=== PATIENT | female | born 1995 | race Caucasian/White ===

== ENCOUNTER 2018-10-05 18:27 | Emergency (ER) | payer OTHER ==
[2018-10-05 18:33] VITALS: BP 118/79
--- NOTE | 2018-10-05 18:41 | ED Physician Documentation ---
PD HPI HEENT - Stated complaint Stated Complaint: SORE THROAT - Chief complaint Chief Complaint: Heent - History obtained from History obtained from: Patient - History of Present Illness Timing - onset: Today (Sore throat today with tonsillar exudates. No fever, runny nose or cough.) Review of Systems Constitutional: denies: Fever, Chills Eyes: denies: Loss of vision, Decreased vision Ears: denies: Loss of hearing, Ear pain Nose: denies: Rhinorrhea / runny nose, Congestion Throat: reports: Sore throat. denies: Dental pain / toothache, Oral lesions / sores Cardiac: denies: Chest pain / pressure, Palpitations PD PAST MEDICAL HISTORY - Present Medications Home Medications: Ambulatory Orders Medication Instructions Recorded Confirmed Fluticasone [Flonase] 1 sprays RAQUEL DAILY 10/05/18 10/05/18 Ibuprofen [Motrin] 800 mg PO Q8H PRN #30 tablet 10/05/18 Loratadine [Claritin] 10 mg PO DAILY 10/05/18 10/05/18 - Allergies Allergies/Adverse Reactions: Allergies Allergy/AdvReac Type Severity Reaction Status Date / Time No Known Drug Allergies Allergy Verified 10/05/18 18:33 PD ED PE NORMAL - Vitals Vital signs reviewed: Yes - General General: Alert and oriented X 3, No acute distress - HEENT HEENT: Other (Mild exudative tonsillitis without cervical adenopathy) - Neck Neck: Supple, no meningeal sign, No bony TTP - Derm Derm: No rash - Neuro Neuro: Alert and oriented X 3, Normal speech - Psych Psych: Normal mood, Normal affect Results - Vitals Vitals: Vital Signs - 24 hr 10/05/18 18:32 Temperature 36.6 C Heart Rate 51 L Respiratory 18 Rate Blood Pressure 118/79 O2 Saturation 100 - Labs Labs: Laboratory Tests 10/05/18 18:40 Group A Strep Rapid Negative Departure - Departure Disposition: 01 Home, Self Care Clinical Impression: Acute viral pharyngitis Condition: Good Record reviewed to determine appropriate education?: Yes Instructions: ED Pharyngitis Viral Report Pending Prescriptions: Ibuprofen [Motrin] 800 mg PO Q8H PRN #30 tablet PRN Reason: PAIN &/OR FEVER Comments: Your initial strep test is negative. We will still culture your throat and if another bacterial pathogen is isolated we will call you in approximately 2 days time to call in antibiotics at that time. Based on the information we have at this juncture though, it seems unlikely will need antibiotics. Take ibuprofen as needed for pain. Return for new or worsening symptoms or if not better in a week.
== END 2018-10-05 18:59 | disposition home or self-care (01) ==
LOC: ED 18:27
DX: J02.8 Acute pharyngitis due to other specified organisms (principal); B97.89 Other viral agents as the cause of diseases classified elsewhere
CPT/HCPCS: 87070; 87430; 99283

== ENCOUNTER 2019-01-28 12:06 | Outpatient (CLI) | payer OTHER ==
--- NOTE | 2019-01-29 14:43 | MRI Report ---
Reason: PAIN IN LEFT WRIST Procedure Date: 01/28/2019 Accession Number: [id number] / [id number] Procedure: MRI - Wrist LT W/O CPT Code: FULL RESULT: EXAM: LEFT WRIST MRI WITHOUT CONTRAST EXAM DATE: 01/28/2019 12:45 PM. CLINICAL HISTORY: PAIN IN LEFT WRIST. COMPARISON: None. TECHNIQUE: Sequences acquired include diagnostic quality coronal and axial T1. Nondiagnostic coronal and sagittal T2 fat-sat, coronal and sagittal gradient. Technical issues with the scanner. Patient is to be rescheduled for repeat exam. No charge exam. FINDINGS: Limited non-contrast wrist MRI. No obvious acute fracture or malalignment demonstrated. Visualized musculotendinous structures grossly intact. IMPRESSION: 1. Limited noncontrast wrist MRI demonstrates no fracture or malalignment. Patient is to be scheduled for repeat examination. RAD[facility]
== END 2019-01-28 12:07 | disposition home or self-care (01) ==
LOC: DI 12:06
PROVIDERS: ATTEND Orthopaedic Surgery
DX: M25.532 Pain in left wrist (principal)

== ENCOUNTER 2019-02-05 15:53 | Outpatient (CLI) | payer OTHER ==
[2019-02-05] MEDS ORDERED: GADOBUTROL 7.5 MMOL/7.5 ML VIAL IVP ONE (16:43)
[2019-02-05] MEDS ORDERED: GADOBUTROL 7.5 MMOL/7.5 ML VIAL ONE (16:51)
--- NOTE | 2019-02-06 10:38 | MRI Report ---
Reason: PAIN IN LEFT WRIST Procedure Date: 02/05/2019 Accession Number: [id number] / [id number] Procedure: MRI - Wrist LT W/WO CPT Code: FULL RESULT: EXAM: LEFT WRIST MRI WITHOUT AND WITH CONTRAST EXAM DATE: 02/05/2019 05:05 PM. CLINICAL HISTORY: Pain in left wrist. COMPARISON: WRIST LT W/WO 01/28/2019 12:45 PM. TECHNIQUE: Multiplanar, multisequence T1-weighted and fluid-sensitive sequences of the wrist before and after administration of intravenous contrast. IV contrast: . Other: None. FINDINGS: Bones: No fractures or subluxations. No marrow edema or abnormal enhancement. No bone lesions. Cartilage: The articular cartilage is unremarkable. The triangular fibrocartilage complex is unremarkable. Negative ulnar variance. Ligaments: The scapholunate and lunotriquetral ligaments are intact. The visualized other intrinsic, extrinsic and collateral ligaments are unremarkable. Tendons: The extensor compartments I through and flexor tendons are unremarkable without tear or tenosysnovitis. Skin marker corresponded to the area of interest indicated by the patient is superficial to the distal extensor carpi radialis tendon (image 11 series 501). Negative for extensor carpi radialis longus tendon tenosynovitis or tendon tear. Musculature: No edema or fatty atrophy. Other: The contents of the carpal tunnel, including the median nerve, are unremarkable. Guyons canal is unremarkable. No ganglion cysts. Increased fluid distal radioulnar joint. Increase fluid radial aspect of radiocarpal compartment (image 6 series 801). The subcutaneous tissues are unremarkable. No abscess or cellulitis. IMPRESSION: 1. Skin marker placed at the level of the wrist superficial to the extensor carpi radialis longus tendon with no tendinitis, tendon tear or tenosynovitis identified. 2. Increase fluid ventral aspect at distal radioulnar joint with no fluid signal triangular fibrocartilage tear identified. 3. Nonspecific increased fluid radial scaphoid articulation. RADIA
== END 2019-02-05 15:54 | disposition home or self-care (01) ==
LOC: DI 15:53
PROVIDERS: ATTEND Orthopaedic Surgery
DX: M25.532 Pain in left wrist (principal)
CPT/HCPCS: 73223; A9585

== ENCOUNTER 2020-05-14 17:50 | Emergency (ER) | payer OTHER ==
[2020-05-14 18:05] VITALS: BP 127/74
[2020-05-14] MEDS ORDERED: BUFFERED LIDOCAINE 10 ML SYRINGE SUBQ STA (18:18)
--- NOTE | 2020-05-14 18:41 | ED Physician Documentation ---
History of Present Illness - Stated complaint Stated Complaint: RT ARM LAC - Chief complaint Chief Complaint: Laceration - History obtained from History obtained from: Patient - History of Present Illness Timing: Today Pain level max: 2 Pain level now: 1 - Additonal information Additional information: 24-year-old female was snowboarding today when she fell and cut her elbow. This happened several hours prior to arrival. Here for evaluation. Tetanus up-to-date. Patient is right-handed. Worse with movement, better with rest Review of Systems Constitutional: denies: Chills Respiratory: denies: Cough GI: denies: Nausea, Vomiting : denies: Now EGA Neurologic: denies: Head injury PD PAST MEDICAL HISTORY - Past Medical History Past Medical History: No - Past Surgical History Past Surgical History: No - Present Medications Home Medications: Ambulatory Orders Medication Instructions Recorded Confirmed Sertraline [Zoloft] 100 mg DAILY 05/14/20 05/14/20 - Allergies Allergies/Adverse Reactions: Allergies Allergy/AdvReac Type Severity Reaction Status Date / Time No Known Drug Allergies Allergy Verified 05/14/20 18:05 - Living Situation Living Arrangement: reports: At home - Social History Does the pt smoke?: No Smoking Status: Never smoker Does the pt drink ETOH?: Yes Does the pt have substance abuse?: No - Immunizations Immunizations are current?: Yes PD ED PE NORMAL - Vitals Vital signs reviewed: Yes - General General: Alert and oriented X 3, No acute distress - HEENT HEENT: Moist mucous membranes - Derm Derm: Warm and dry - Extremities Extremities: Other (2 cm laceration to the lateral aspect of the right elbow. Neurovascularly intact. Subcutaneous.) - Neuro Neuro: Alert and oriented X 3 Results - Vitals Vitals: Vital Signs - 24 hr 05/14/20 17:58 Temperature 37 C Heart Rate 79 Respiratory 16 Rate Blood Pressure 127/74 O2 Saturation 97 Oxygen O2 Source Room air Procedures - Laceration (location) Right elbow Length in cm: 2 Wound type: Linear, Into subcut fat, Clean Neurovascular status: Sensory intact, Motor intact, Vascular intact Tendon involvement: Tendon intact Anesthesia: Lidocaine 1% Wound Preparation: Irrigated copiously NS Skin layer closure: Nylon, Interrupted, Size #-0 - enter number (4), Sutures - enter # (3) Other: Patient tolerated well, No complications, Neurovascular intact, Dressing applied, Tetanus UTD Complexity: Simple PD MEDICAL DECISION MAKING - ED course Complexity details: considered differential, d/w patient ED course: Laceration repaired. Tolerated well. Warnings of infection and instructions on wound care given at bedside. Also counseled on how to minimize scarring. Patient counseled regarding signs and symptoms for which I believe and urgent re- evaluation would be necessary. Patient with good understanding of and agreement to plan and is comfortable going home at this time This document was made in part using voice recognition software. While efforts are made to proofread this document, sound alike and grammatical errors may occur. Departure - Departure Disposition: Home, Self Care Clinical Impression: Laceration of elbow Qualifiers: Encounter type: initial encounter Laterality: right Qualified Code(s): S51.011A - Laceration without foreign body of right elbow, initial encounter Condition: Good Instructions: ED Laceration Ext Sutr Stap Tape Follow-Up: Your,doctor in 10-14 day [Other] Comments: Return if you worsen. Keep the wound clean. Follow-up with your doctor in about 10 to 14 days for suture removal. Return if you notice redness, swelling or drainage from the wound.
== END 2020-05-14 18:49 | disposition home or self-care (01) ==
LOC: ED 17:50
DX: S51.011A Laceration without foreign body of right elbow, initial encounter (principal); V00.311A Fall from snowboard, initial encounter; Y93.23 Activity, snow (alpine) (downhill) skiing, snowboarding, sledding, tobogganing and snow tubing
CPT/HCPCS: 12001; 99281; 99282

== ENCOUNTER 2020-08-06 11:49 | Emergency (ER) | payer OTHER ==
[2020-08-06 12:50] LABS: BASOPHILS % (AUTO) 0.6 %; EOSINOPHILS # (AUTO) 0.1 10^3/uL (0.0-0.7); EOSINOPHILS % (AUTO) 0.9 %; HGB - HEMOGLOBIN 11.9 g/dL (12.0-16.0); LYMPHOCYTES # (AUTO) 1.9 10^3/uL (1.5-3.5); MEAN CORPUSCULAR HEMOGLOBIN 30.1 pg (27.0-31.0); MEAN CORPUSCULAR HGB CONC 34.1 g/dL (32.0-36.0); MEAN CORPUSCULAR VOLUME 88.1 fL (81.0-99.0); MEAN PLATELET VOLUME 9.8 fL (7.9-10.8); MONOCYTES # (AUTO) 0.5 10^3/uL (0.0-1.0); MONOCYTES % (AUTO) 7.1 %; NEUTROPHILS # (AUTO) 4.5 10^3/uL (1.5-6.6); NEUTROPHILS % (AUTO) 64.1 %; PLT - PLATELET COUNT 266 10^3/uL (130-450); RED BLOOD COUNT 3.96 10^6/uL (4.20-5.40); WHITE BLOOD COUNT 6.9 x10^3/uL (4.8-10.8)
[2020-08-06 12:51] LABS: BILIRUBIN,URINE NEGATIVE (NEGATIVE); CLARITY,URINE CLEAR (CLEAR); GLUCOSE, URINE (UA) NEGATIVE (NEGATIVE); KETONES,URINE (UA) NEGATIVE (NEGATIVE); LEUKOCYTE ESTERASE, URINE NEGATIVE (NEGATIVE); NITRITE,URINE NEGATIVE (NEGATIVE); OCCULT BLOOD,URINE NEGATIVE (NEGATIVE); PROTEIN,URINE NEGATIVE (NEGATIVE); UROBILINOGEN,URINE 0.2 (NORMAL) E.U./dL (NORMAL)
[2020-08-06 12:52] LABS: HCG UR QUAL POSITIVE
[2020-08-06 12:59] LABS: ALBUMIN 4.3 g/dL (3.2-5.5); ALBUMIN/GLOBULIN RATIO 1.5 (1.0-2.2); BILIRUBIN,TOTAL 0.2 mg/dL (0.2-1.0); CALCIUM 9.2 mg/dL (8.5-10.3); CREATININE 0.4 mg/dL (0.4-1.0); TOTAL PROTEIN 7.2 g/dL (6.7-8.2)
[2020-08-06] MEDS ORDERED: LACTATED RINGERS 1,000 ML IV STA (13:50)
[2020-08-06] MEDS ORDERED: POTASSIUM CHLOR 10 MEQ/100 ML 10 MEQ/100 ML BAG IV ONE (13:54)
[2020-08-06 14:12] VITALS: BP 111/69
--- NOTE | 2020-08-06 15:06 | ED Physician Documentation ---
History of Present Illness - Stated complaint Stated Complaint: DIZZY - Chief complaint Chief Complaint: General - History obtained from History obtained from: Patient - Additonal information Additional information: 24yF ega 8 wga, pmh depression on sertraline p/w lightheadedness intermittent over past couple days a/w decreased oral intake and nausea/malaise. worse with sudden position changes. gradual onset, progressively worsening over past few days. pt denies fever, vag bleeding, abd pain, vomiting, vag discharge, urinary sx, cp sob werner or back pain. pt has appt 08/10 [facility] ob [facility]. Review of Systems Ten Systems: 10 systems reviewed and negative Constitutional: denies: Fever Cardiac: denies: Chest pain / pressure Respiratory: denies: Dyspnea GI: reports: Nausea, Other (decreased appetite) : denies: Dysuria, Vaginal bleeding Musculoskeletal: denies: Back pain Neurologic: reports: Generalized weakness, Other (dizziness) PD PAST MEDICAL HISTORY - Past Medical History Cardiovascular: None Respiratory: None Neuro: None Endocrine/Autoimmune: None GI: None OUTSIDE DELIVERER: None : None HEENT: None Psych: None Musculoskeletal: None Derm: None - Past Surgical History Past Surgical History: No - Present Medications Home Medications: Ambulatory Orders Medication Instructions Recorded Confirmed Sertraline [Zoloft] 100 mg DAILY 05/14/20 05/14/20 - Allergies Allergies/Adverse Reactions: Allergies Allergy/AdvReac Type Severity Reaction Status Date / Time No Known Drug Allergies Allergy Verified 08/06/20 12:09 - Social History Does the pt smoke?: No Smoking Status: Never smoker Does the pt drink ETOH?: Yes Does the pt have substance abuse?: No - Immunizations Immunizations are current?: Yes PD ED PE NORMAL - Vitals Vital signs reviewed: Yes - General General: Alert and oriented X 3, No acute distress, Well developed/nourished - HEENT HEENT: Atraumatic, PERRL, EOMI, Moist mucous membranes - Neck Neck: Supple, no meningeal sign - Cardiac Cardiac: RRR - Respiratory Respiratory: No respiratory distress, Clear bilaterally - Abdomen Abdomen: Non tender, Non distended - Female Female : Deferred - Rectal Rectal: Deferred - Back Back: No CVA TTP - Derm Derm: Normal color - Extremities Extremities: No edema - Neuro Neuro: Alert and oriented X 3 - Psych Psych: Normal mood, Normal affect Results - Vitals Vitals: Vital Signs - 24 hr 08/06/20 08/06/20 08/06/20 12:03 12:16 14:09 Temperature 36.4 C L 36.7 C Heart Rate 63 55 L 65 Respiratory 18 14 18 Rate Blood Pressure 103/57 L 107/66 111/69 O2 Saturation 100 100 98 Oxygen O2 Source Room air - Labs Labs: Laboratory Tests 08/06/20 08/06/20 08/06/20 12:36 12:40 12:40 WBC 6.9 RBC 3.96 L Hgb 11.9 L Hct 34.9 L MCV 88.1 MCH 30.1 MCHC 34.1 RDW 12.0 Plt Count 266 MPV 9.8 Neut # (Auto) 4.5 Lymph # (Auto) 1.9 Heard # (Auto) 0.5 Eos # (Auto) 0.1 Baso # (Auto) 0.0 Absolute Nucleated RBC 0.00 Nucleated RBC % 0.0 Sodium 135 Potassium 3.4 L Chloride 100 L Carbon Dioxide 26 Anion Gap 9.0 BUN 8 Creatinine 0.4 Estimated GFR (MDRD) 200 Glucose 75 Calcium 9.2 Total Bilirubin 0.2 AST 27 ALT 31 Alkaline Phosphatase 44 Total Protein 7.2 Albumin 4.3 Globulin 2.9 Albumin/Globulin Ratio 1.5 Lipase 24 Urine Color YELLOW Urine Clarity CLEAR Urine pH 6.0 Ur Specific [place] 1.020 Urine Protein NEGATIVE Urine Glucose (UA) NEGATIVE Urine Ketones NEGATIVE Urine Occult Blood NEGATIVE Urine Nitrite NEGATIVE Urine Bilirubin NEGATIVE Urine Urobilinogen 0.2 (NORMAL) Ur Leukocyte Esterase NEGATIVE Ur Microscopic Review NOT INDICATED Urine Culture Comments NOT INDICATED Urine HCG, Qual POSITIVE PD MEDICAL DECISION MAKING - ED course ED course: 24-year-old woman presented with lightheadedness and malaise progressive over the past couple of days associated with decreased p.o. intake. She was found to have low blood pressure in the emergency room and given a liter of IV fluids. Extensive education was given about the importance of hydration and adequate nutrition during . Patient is feeling better and is tolerating p.o. She will follow up on August 10 with her new OB at [facility]. Strict return precautions given. Departure - Departure Disposition: 01 Home, Self Care Clinical Impression: Hypotension, Lightheadedness, Early stage of Condition: Good Instructions: Preg 1st Trimester, Dehydration Comments: You were seen in the emergency department for dizziness and low blood pressure. We gave you 1 L of IV fluids and your blood pressure improved. Your urine and labwork was normal. During your it is important that you eat frequent small meals and get adequate nutrition and fluids. Drink at least 8 to 10 glasses of water a day and try to also incorporate Pedialyte and/or Gatorade. Follow-up with your OB appointment on August 10 with [facility]ahona in [place]. Return to the emergency department for any new or worsening symptoms or other concerns. [facility] is located in the [facility] at [address], [address], in [place]. For appointments, call [phone]. Discharge Date/Time: 08/06/20 15:36
== END 2020-08-06 15:36 | disposition home or self-care (01) ==
LOC: ED 11:49
DX: O99.419 Diseases of the circulatory system complicating pregnancy, unspecified trimester (principal); I95.9 Hypotension, unspecified; R42 Dizziness and giddiness
CPT/HCPCS: 36415; 80053; 81003; 81025; 83690; 85025; 93005; 96365; 99283; J7120; 81001; 87086